=== PATIENT | female | born 1940 | race Caucasian/White ===

== ENCOUNTER 2017-02-19 08:11 | Emergency (ER) | payer MEDICARE, MEDICAID ==
[~2017-02-19] VITALS: Ht 170.2 cm; Wt 85.0 kg
[~2017-02-19 08:11] MED LIST: COUM4TAB7 PO; DARV PO; LORT5TAB PO; METO5TAB PO; MIRA33502 PO; OMEP20CA5 PO; PREV30CA36 PO; PRIN20TA2 PO; PROM25SU8 PO; REME30TA PO; SIMV20 PO; STOO100C PO
[2017-02-19] MEDS ORDERED: EPINEPHrine HCL (1:10,000) 1 MG/10 ML SYRINGE IV ONE (08:12)
--- NOTE | 2017-02-19 08:35 | PD ---
HPI Chief Complaint: Code Blue Time Seen by Provider: 08:27 Travel History International Travel<30 days: No Contact w/Intl Traveler<30days: No Traveled to known affect area: No History of Present Illness HPI 76-year-old female was brought in by EMS after cardiopulmonary arrest. Patient resides at local [facility]. Patient was given pain medication this morning. Patient was found unresponsive without pulse or respiration subsequently. EMS was called. Upon arrival, patient was found in asystole. EMS reported patient was given assisted respiration with bagging prior to EMS arrival. Chest compressions started. Patient was intubated with Combi Tube. IO started left leg. Patient was given Narcan 2 mg IV without results. Patient was given epinephrine IO 2. Patient was transported to the ED. Patient has history of hypertension, diabetes, hyperlipidemia. Patient has history of breast cancer. PFSH Past Medical History Depression: Yes Cardiovascular Problems: Yes (LEFT CAROTID STENOSIS) High Cholesterol: Yes Congestive Heart Failure: Yes Cerebrovascular Accident: Yes (RIGHT HEMIPARESIS, DYSPHAGIA.) Diminished Hearing: No Deep Vein Thrombosis: Yes (HISTORY OF,ON COUMADIN) Gastrointestinal Disorders: Yes (HX OF SBO) GERD: Yes Hiatal Hernia: Yes Renal Failure: Yes Menopausal: Yes Past Surgical History Abdominal Surgery: Yes (PEG TUBE PLACEMENT) Section: Yes Gynecologic Surgery: Yes () Social History Alcohol Use: No Tobacco Use: No Substance Use: No Allergies-Medications (Allergen,Severity, Reaction): Coded Allergies: No Known Allergies (Verified Adverse Reaction, Unknown, 02/19/17) Reported Meds & Prescriptions Reported Meds & Active Scripts Active Active Prescriptions or Reported Medications Unobtainable Review of Systems ROS Limitations: Intubated, Unresponsive Physical Exam Narrative GENERAL: Well-nourished, well-developed patient. SKIN: Focused skin assessment warm/dry. HEAD: Normocephalic. EYES: No scleral icterus. No injection or drainage. Pupils 4 mm dilated and nonreactive. NECK: Supple, trachea midline. No JVD or lymphadenopathy. CARDIOVASCULAR: No cardiac activity RESPIRATORY: No spontaneous respiration. Breath sounds equal bilaterally with bagging. GASTROINTESTINAL: Abdomen soft, nondistended. MUSCULOSKELETAL: No cyanosis, or edema. BACK: No obvious deformity. MDM Medical Decision Making Medical Screen Exam Complete: Yes Emergency Medical Condition: Yes Differential Diagnosis Differential diagnosis including respiratory arrest, cardiac arrest, arrhythmia , [place], massive PE. Narrative Course 76-year-old female was brought in by EMS in full cardiopulmonary arrest. Patient was found unresponsive at local [facility]. Patient was given Narcan , epinephrine IO prior to arrival. Patient was intubated and chest compressions started prior to arrival. ACLS protocol followed. Patient was given repeated doses of epinephrine IV. Chest compressions continue. Patient did not respond. Patient was pronounced. Critical Care Narrative Aggregate critical care time was 30 minutes. Time to perform other separately billable procedures was not included in the critical care time. My time did not include minutes spent treating any other patients simultaneously or on activities that did not directly contribute to the patient's treatment. The services I provided to this patient were to treat and/or prevent clinically significant deterioration that could result in: I provided critical care services requiring my management, as noted below: Chart data review, documentation time, medication orders and management, vital sign assessments/reviewing monitor data, ordering and reviewing lab tests, ordering and interpreting/reviewing x-rays and diagnostic studies, care of the patient and discussion of the patient with the admitting physicians. Diagnosis Primary Impression: Cardiopulmonary arrest Additional Impressions: History of hypertension History of diabetes mellitus History of breast cancer Scripts Unable to Obtain Active Prescriptions or Reported Meds Disposition: 20 Condition: Pernell Joel MD Feb 19, 2017 08:35
== END 2017-02-19 11:41 | disposition expired ==
LOC: NEPC 08:11
DX: I46.9 Cardiac arrest, cause unspecified (principal); I11.0 Hypertensive heart disease with heart failure; I50.9 Heart failure, unspecified; E11.9 Type 2 diabetes mellitus without complications; Z85.3 Personal history of malignant neoplasm of breast
CPT/HCPCS: 99291; J0171